=== PATIENT | male | born 2000 | race Caucasian/White ===

== ENCOUNTER 2021-08-10 21:34 | Emergency (ER) | payer SELFPAY ==
[~2021-08-10] VITALS: Ht 182.9 cm; Wt 90.7 kg
[~2021-08-10 21:34] MED LIST: RXONDA4ODT MM
== END 2021-08-10 23:15 | disposition home or self-care (01) ==
LOC: ER 21:34
DX: S62.326A Displaced fracture of shaft of fifth metacarpal bone, right hand, initial encounter for closed fracture (principal); W22.8XXA Striking against or struck by other objects, initial encounter
CPT/HCPCS: 73130; A9270; J1885

== ENCOUNTER → 2022-07-23 | Outpatient (CLI) | payer OTHER | END | disposition home or self-care (01) | LOC: LAB SHORT 09:50 | DX: Z20.822 Contact with and (suspected) exposure to COVID-19 (principal) | CPT/HCPCS: U0003 ==